=== PATIENT | female | born 1990 | race African-American/Black ===

== ENCOUNTER 2016-11-01 15:32 | Emergency (ER) | payer MEDICAID ==
[~2016-11-01] VITALS: Ht 170.2 cm; Wt 88.5 kg
[~2016-11-01 15:32] MED LIST: ACETAMINOPHEN500 M3 ORAL; ADALAT CC60 MG ORAL; ADALAT20 MG ORAL; AMOXICILLIN500 MG ORAL; AUGMENTIN 875-1 EAC1 ORAL; AZITHROMYCIN250 MG ORAL; CATAPRES0.2 MG ORAL; CATAPRES0.3 MG ORAL; CIPROFLOXACIN500 M2 ORAL; CLONIDINE 0.2M0.2 MG PO; CLONIDINE0.1 MG PO; ENALAPRIL MALEA10 MG ORAL; GUAIFENESIN-CO118 M1 ORAL; HYDROCODON-ACE1 EA15 ORAL; IBUPROFEN600 MG ORAL; NIFEDIPINE ER60 M2 ORAL; NIFEDIPINE ER60 M2 PO; NIFEDIPINE XL30 M1 PO; NORCO 5-325 TA1 EACH ORAL; ROBITUSSIN DM5 ML ORAL; TRAMADOL HCL50 MG ORAL; ZOFRAN ODT4 MG ORAL
[2016-11-01 15:58] VITALS: BP 132/78
--- NOTE | 2016-11-01 16:06 | Emergency Room Report ---
History of Present Illness General Chief Complaint: Pain Source: Patient Present Illness HPI R sided swollen lymph node Allergies: Coded Allergies: No Known Allergies (Unverified , 11/22/12) Patient History Last Menstrual Period: 10/25/16 Now: No Nursing Documentation-[facility] Past Medical History: No Stated History Hx Hypertension: Yes Review of Systems All Other Systems: negative except mentioned in HPI Physical Exam Vital Signs Date Time Temp Pulse Resp B/P Pulse Ox O2 Delivery O2 Flow Rate FiO2 11/01/16 15:44 98.2 99 16 132/78 98 Room Air Medical Decision Making PA Attestation Dr. Bergeron is my supervising physician. Patient management was discussed with my supervising physician Diagnostic Impression: Primary Impression: Lymph node enlargement ER Course Differential diagnosis include but not limited to pharyngitis, sinusitis, AOM, bronchitis, PNA PE: No apparent distress. No TTP over maxillary or frontal sinuses. Lungs CTA bilat. No wheezing. No accessory muscle use. Heart: RRR, no abnormal heart sounds Ears: external auditory canal clear. Non erythematous. Bilat TM intact. Cone of light present bilat. No bulging of TM. No serous fluid seen. + nasal D/C + anterior cervical lymphad No tonsillar exudate. Uvula midline.Oropharynx non erythematous Last Vital Signs Date Time Temp Pulse Resp B/P Pulse Ox O2 Delivery O2 Flow Rate FiO2 11/01/16 15:58 98.2 16 132/78 98 Room Air 11/01/16 15:44 99 Scripts Amoxicillin* (AMOXIL*) 500 Mg Capsule 500 MG ORAL Q12HR, #20 CAP Prov: PO PATEL 11/01/16 PO PATEL November 01, 2016 16:06
[2016-11-01] MEDS ORDERED: AMOXICILLIN500 MG ORAL (16:08)
[2016-11-01 16:09] VITALS: BP 132/78
== END 2016-11-01 16:30 | disposition home or self-care (01) ==
LOC: EMR 16:20
DX: R59.9 Enlarged lymph nodes, unspecified (principal); I10 Essential (primary) hypertension
CPT/HCPCS: 99283

== ENCOUNTER 2017-10-05 13:35 | Emergency (ER) | payer MEDICAID ==
[~2017-10-05] VITALS: Ht 172.7 cm; Wt 86.2 kg
[2017-10-05] MEDS ORDERED: NKM (13:45)
--- NOTE | 2017-10-05 14:06 | Emergency Room Report ---
History of Present Illness General Chief Complaint: Toothache Source: Patient Present Illness HPI Patient is a 27-year-old female presented after increased left upper the molar dental pain. The patient reports having increased pain over the past 2 days. She had recently been seen by a dentist but did not have any repair done. Stated that a filling had become dislodged. She subsequently noticed having increased pain with an sensitivity to hot and cold. The pain was described as a throbbing sensation. She denies any fever. She reports having minimal relief with topical anesthetics. Allergies: Coded Allergies: No Known Allergies (Unverified , 11/22/12) Patient History Past Medical History: see triage record Last Menstrual Period: 09/24/17 : 2 Para: 2 Reviewed Nursing Documentation: PMH: Agreed; PSxH: Agreed Nursing Documentation-PMH Past Medical History: No Stated History Hx Hypertension: Yes Review of Systems All Other Systems: negative except mentioned in HPI Physical Exam Vital Signs Date Time Temp Pulse Resp B/P (MAP) Pulse Ox O2 Delivery O2 Flow Rate FiO2 10/05/17 13:41 98.4 66 18 150/91 97 Room Air 98.4 General Appearance: well appearing, no apparent distress, alert, GCS 15 Head: normocephalic, atraumatic ENT: hearing grossly normal, normal voice, other - dental caries, no tenderness to tooth, no maxillary swelling Neck: full range of motion, supple Respiratory: no respiratory distress, speaking full sentences Musculoskeletal: no calf tenderness Neurologic: normal gait Psychiatric: mood/affect normal Skin: no rash Medical Decision Making Diagnostic Impression: Primary Impression: Pain due to dental caries ER Course Differential diagnosis included but was not limited to trigeminal neuralgia, dental abscess, dry socket, osteomyelitis, nerve injury. The patient was noted to have a benign exam. There is no evidence of infection. The patient is advised to follow up with dentist in 1-2 days. Patient stated she had a negative test at [place] last night. Patient is advised to return if any worsening condition or if any changes in status that are concerning. Last Vital Signs Date Time Temp Pulse Resp B/P (MAP) Pulse Ox O2 Delivery O2 Flow Rate FiO2 10/05/17 13:41 98.4 66 18 150/91 97 Room Air 98.4 Status: improved Disposition: HOME, SELF-CARE Condition: Stable Dada Luevano Oct 05, 2017 14:06
[2017-10-05] MEDS ORDERED: LIDOCAINE VISC100 ML ORAL (14:08)
[2017-10-05] MEDS ORDERED: IBUPROFEN600 MG ORAL (14:08)
[2017-10-05] MEDS ORDERED: Lidocaine 2% Visc 15ml soln ORAL ONE (14:15)
[2017-10-05] MEDS ORDERED: Ketorolac 60mg Inj IM ONE (14:15)
[2017-10-05 14:18] VITALS: BP 147/88
[2017-10-05 14:19] VITALS: BP 147/88
== END 2017-10-05 14:19 | disposition home or self-care (01) ==
LOC: EMR 14:00
DX: K02.9 Dental caries, unspecified (principal); I10 Essential (primary) hypertension
CPT/HCPCS: 96372; 99283

== ENCOUNTER 2017-10-10 15:59 | Emergency (ER) | payer MEDICAID ==
[~2017-10-10] VITALS: Ht 170.2 cm; Wt 90.7 kg
[~2017-10-10 15:59] MED LIST changes: +LIDOCAINE VISC100 ML ORAL; +NKM
[2017-10-10 16:17] VITALS: BP 120/72
[2017-10-10] MEDS ORDERED: Ketorolac 30mg Inj IM ONE (16:30)
[2017-10-10] MEDS ORDERED: Lidocaine HCl 2% Jelly 5ml Tube TOPIC ONE (16:30)
--- NOTE | 2017-10-10 16:37 | Emergency Room Report ---
History of Present Illness General Chief Complaint: Toothache Source: Patient Present Illness HPI 27 yo female patient presents to ER complaining of dental pain. Reports seen by dentist earlier today and told she needs a tooth extraction. Reports was given Amoxicillin, Ibuprofen and [place] and pain persists. Patient previously seen in ER 5 days ago for similar symptoms. Patient requesting pain relief. Reports using Ambesol to numb tooth and has intermittent relief. Reports no fever, chest pain, SOB. Allergies: Coded Allergies: No Known Allergies (Unverified , 11/22/12) Patient History Past Medical History: see triage record Reviewed Nursing Documentation: PMH: Agreed; PSxH: Agreed Nursing Documentation-PMH Past Medical History: No Stated History Hx Hypertension: Yes Review of Systems All Other Systems: negative except mentioned in HPI Physical Exam Vital Signs Date Time Temp Pulse Resp B/P (MAP) Pulse Ox O2 Delivery O2 Flow Rate FiO2 10/10/17 16:06 98.3 83 20 120/72 100 Room Air 98.2 Sp02 EP Interpretation: reviewed, normal General Appearance: well appearing, no apparent distress, alert, GCS 15, non- toxic Head: normocephalic, atraumatic Eyes: bilateral eye normal inspection, bilateral eye PERRL ENT: hearing grossly normal, normal pharynx, no angioedema, normal voice, TMs + canals normal, uvula midline, moist mucus membranes, other - dental caries, no TTP of teeth, no open wounds, no active bleeding Neck: full range of motion Respiratory: lungs clear, normal breath sounds, no rhonchi, no respiratory distress, no accessory muscle use, no wheezing, speaking full sentences Cardiovascular #1: regular rate, rhythm, no edema Musculoskeletal: back normal, digits/nails normal, gait/station normal, normal range of motion, non-tender Neurologic: alert, oriented x3, responsive, motor strength/tone normal, sensory intact Psychiatric: mood/affect normal Skin: no rash Medical Decision Making PA Attestation Dr. Flannery is my supervising Physician whom patient management has been discussed with. Diagnostic Impression: Primary Impression: Toothache ER Course Pt. presents to the ED c/o tooth pain. Ddx considered but are not limited to cellulitis, abscess, dental caries, gingivitis. Does not require imaging at this time. Vital signs: are WNL, pt. is afebrile ED INTERVENTIONS: PE benign. Lidocaine jelly applied to tooth. Toradol provided for pain in ER. Nontoxic appearing, speaking full sentences, no active draining, mild edema, no trismus or vision changes. Followup with dentist and primary care provider. Take medications provided by and as instructed by dentist. Consult with Dr. Flannery, will not perform dental injection for pain in ER at this time. Patient reports will go to [facility] for dental injection for pain. Instructed patient to followup with dentist and primary care provider for pain relief. DISCHARGE: At this time pt. is stable for d/c to home. Patient is resting comfortably, in no acute distress, nontoxic appearing, talking and smiling without difficulty. Will provide printed patient care instructions and any necessary prescriptions. Care plan and follow up instructions have been discussed with the patient prior to discharge. Patient instructed to follow-up with primary care provider in 2 - 3 days. Followup with dentist. Patient questions asked and answered. Patient reports understanding and agreement to treatment plan. ER precautions given. Patient instructed to return to ER immediately for any new or worsening of symptoms including but not limited to fever, worsening of pain symptoms, worsening of erythema, red streaking. Last Vital Signs Date Time Temp Pulse Resp B/P (MAP) Pulse Ox O2 Delivery O2 Flow Rate FiO2 10/10/17 16:17 98.2 83 20 120/72 100 Room Air 98.2 Disposition: HOME, SELF-CARE Condition: Stable Patient Instructions: Dental Pain Additional Instructions: Followup with primary care provider in 3 -5 days. Followup with dentist for followup, treatment and management. Take medications as directed. Patient questions asked and answered. ER precautions given, patient instructed to return to ER immediately for any new or worsening of symptoms. Caleb Ng Oct 10, 2017 16:37
[2017-10-10 17:20] VITALS: BP 120/72
== END 2017-10-10 17:20 | disposition home or self-care (01) ==
LOC: EMR 17:00
DX: K08.89 Other specified disorders of teeth and supporting structures (principal); I10 Essential (primary) hypertension
CPT/HCPCS: 96372; 99283; J1885

== ENCOUNTER 2017-12-23 00:56 | Emergency (ER) | payer MEDICAID ==
[~2017-12-23] VITALS: Ht 170.2 cm; Wt 93.0 kg
[2017-12-23] MEDS ORDERED: TRAMADOL HCL50 MG ORAL (01:23)
[2017-12-23] MEDS ORDERED: Norco 5mg/325mg tab PO ONE (01:45)
[2017-12-23] MEDS ORDERED: IBUPROFEN600 MG ORAL (03:13)
[2017-12-23 03:19] VITALS: BP 117/78
--- NOTE | 2017-12-23 05:13 | Emergency Room Report ---
History of Present Illness General Chief Complaint: Lower Extremity Injury Source: Patient Present Illness HPI 27-year-old female presents ED complaining of right ankle pain and swelling. States that this morning she rolled her ankle at home. Notes pain to the right ankle and foot. 8 out of 10, throbbing, nonradiating. States it is difficult to bear weight. Denies any other injuries. No other aggravating relieving factors. Denies any other associated symptoms Allergies: Coded Allergies: No Known Allergies (Unverified , 12/23/17) Patient History Past Medical History: none Past Surgical History: none Pertinent Family History: none Social History: Denies: smoking, alcohol use, drug use Last Menstrual Period: 12/20/2017 Now: No Immunizations: UTD Reviewed Nursing Documentation: PMH: Agreed; PSxH: Agreed Nursing Documentation-PMH Past Medical History: No Stated History Hx Hypertension: No Review of Systems All Other Systems: negative except mentioned in HPI Physical Exam Vital Signs Date Time Temp Pulse Resp B/P (MAP) Pulse Ox O2 Delivery O2 Flow Rate FiO2 12/23/17 01:17 98.2 74 16 117/78 96 Room Air 98.2 Sp02 EP Interpretation: reviewed, normal General Appearance: no apparent distress, alert, GCS 15, non-toxic Head: normocephalic, atraumatic Eyes: bilateral eye normal inspection, bilateral eye PERRL ENT: hearing grossly normal, normal pharynx, no angioedema, normal voice Neck: full range of motion, supple/symm/no masses Respiratory: chest non-tender, lungs clear, normal breath sounds, speaking full sentences Cardiovascular #1: regular rate, rhythm, no edema Cardiovascular #2: 2+ carotid (R), 2+ carotid (L), 2+ radial (R), 2+ radial (L) , 2+ dorsalis pedis (R), 2+ dorsalis pedis (L) Gastrointestinal: normal bowel sounds, non tender, soft, non-distended, no guarding, no rebound Rectal: deferred Genitourinary: normal inspection, no CVA tenderness Musculoskeletal: back normal, gait/station normal, normal range of motion, tender - R foot Neurologic: alert, oriented x3, responsive, motor strength/tone normal, sensory intact, speech normal Psychiatric: judgement/insight normal, memory normal, mood/affect normal, no suicidal/homicidal ideation Reflexes: 3+ bicep (R), 3+ bicep (L), 3+ tricep (R), 3+ tricep (L), 3+ knee (R) , 3+ knee (L) Skin: normal color, no rash, warm/dry, well hydrated Lymphatic: no adenopathy Procedures Splinting Splinting : Consent: Verbal Pre-Made Type: LENNY wrap Pre-Proc Neuro Vasc Exam: normal Post-Proc Neuro Vasc Exam: normal Patient Tolerated: Well Complications: None Medical Decision Making Diagnostic Impression: Primary Impression: Ankle sprain Qualified Codes: S93.401A - Sprain of unspecified ligament of right ankle, initial encounter ER Course Hospital Course 27-year-old F presents to ED complaining of R foot pain s/p trip and fall Differential diagnoses include: Fracture, dislocation, sprain, contusion Clinical course Patient placed on stretcher. After initial history and physical, I ordered pain medications and Xrays of R foot/ankle Xrays prelim read shows no acute fracture/dislocation. placed in lenny wrap, given crutches Diagnosis - ankle sprain Stable and discharged to home with prescription for Motrin. apply ice, keep elevated. weight bear as tolerated. Followup with PMD. Return to ED if symptoms recur or worsen Other X-Ray Diagnostic Results Other X-Ray Diagnostic Results #1: X-Ray ordered: R foot # of Views/Limited Vs Complete: 3 View Indication: Pain EP Interpretation: Yes Interpretation: no dislocation, no soft tissue swelling, no fractures Impression: No acute disease Electronically Signed by: Electronically signed by Sean Flannery MD Other X-Ray Diagnostic Results #2: X-Ray ordered: R ankle # of Views/Limited Vs Complete: 3 View Indication: Pain EP Interpretation: Yes Interpretation: no dislocation, no soft tissue swelling, no fractures Impression: No acute disease Electronically Signed by: Electronically signed by Sean Flannery MD Last Vital Signs Date Time Temp Pulse Resp B/P (MAP) Pulse Ox O2 Delivery O2 Flow Rate FiO2 12/23/17 03:19 98.2 88 16 117/78 96 Room Air 208.8 Status: improved Disposition: HOME, SELF-CARE Condition: Stable Scripts Ibuprofen* (MOTRIN*) 600 Mg Tablet 600 MG ORAL Q8H PRN for For Pain, #30 TAB 0 Refills Prov: Sean Flannery MD 12/23/17 Patient Instructions: Ankle Sprain Sean Flannery MD Dec 23, 2017 05:13
--- NOTE | 2017-12-23 10:56 | Diagnostic Imaging Report ---
Indication: Foot Pain Comparison: None Findings: 3 views of the right foot were obtained. No acute fractures, malalignment, erosions or periostitis are identified. Soft tissues are unremarkable. Impression: No acute findings.
--- NOTE | 2017-12-23 10:56 | Diagnostic Imaging Report ---
Indication: Pain right ankle ankle pain/trauma Comparison: None Findings: 3 views of the right ankle obtained. No acute fracture, malalignment, periostitis, or osteochondral defects are identified. Soft tissues are unremarkable. Impression: Negative examination
== END 2017-12-23 03:21 | disposition home or self-care (01) ==
LOC: EMR 01:35
DX: S93.401A Sprain of unspecified ligament of right ankle, initial encounter (principal); X50.1XXA Overexertion from prolonged static or awkward postures, initial encounter; Y92.009 Unspecified place in unspecified non-institutional (private) residence as the place of occurrence of the external cause
CPT/HCPCS: 99284

== ENCOUNTER 2018-06-09 12:32 | Emergency (ER) | payer MEDICAID ==
[~2018-06-09] VITALS: Ht 170.2 cm; Wt 140.6 kg
[2018-06-09 12:43] VITALS: BP 151/86
[2018-06-09] MEDS ORDERED: Lidocaine 2% Visc 15ml soln ORAL ONE (13:00)
[2018-06-09] MEDS ORDERED: Ketorolac 30mg Inj IM ONE (13:00)
[2018-06-09] MEDS ORDERED: Tylenol #3 tab (300mg/30mg) ORAL ONE (13:00)
--- NOTE | 2018-06-09 13:06 | Emergency Room Report ---
History of Present Illness General Chief Complaint: Toothache Source: Patient Present Illness HPI 28-year-old female presents to the emergency department complaining of 10 out of 10 in severity localized dental pain to the top left molars 2 days. Patient reports history of significant dental caries which were recommended for extraction however she was an able to have them extracted by her dentist due to financial reasons. Patient denies fevers, chills, trauma or fall to cause tooth injury. Patient denies swelling, tenderness or redness about the gum line in that area. Patient states that she has been taking ibuprofen and using several different mouthwashes which have not provided any relief. Allergies: Coded Allergies: No Known Allergies (Unverified , 12/23/17) Patient History Past Medical History: see triage record Past Surgical History: none Pertinent Family History: none Last Menstrual Period: 05/30/18 Now: No Reviewed Nursing Documentation: PMH: Agreed; PSxH: Agreed Nursing Documentation-PMH Past Medical History: No Stated History Hx Hypertension: No Review of Systems All Other Systems: negative except mentioned in HPI Physical Exam Vital Signs Date Time Temp Pulse Resp B/P (MAP) Pulse Ox O2 Delivery O2 Flow Rate FiO2 06/09/18 12:38 98.2 74 18 151/86 98 Room Air Sp02 EP Interpretation: reviewed, normal General Appearance: no apparent distress, alert, GCS 15, non-toxic Head: normocephalic, atraumatic Eyes: bilateral eye normal inspection, bilateral eye PERRL ENT: hearing grossly normal, normal voice, other - Severe obvious/visible dental caries on medial portion of teeth numbers 13 and 14. Severe tenderness to percussion with tongue blade, no erythema, or swelling to the gumline. Neck: full range of motion Respiratory: lungs clear, normal breath sounds, speaking full sentences Cardiovascular #1: regular rate, rhythm Musculoskeletal: back normal, gait/station normal, normal range of motion Neurologic: alert, oriented x3, responsive, motor strength/tone normal, sensory intact, normal gait, speech normal, grossly normal Psychiatric: judgement/insight normal Skin: normal color, no rash, warm/dry, well hydrated Medical Decision Making PA Attestation Dr. Luevano is my supervising Physician whom patient management has been discussed with. Diagnostic Impression: Primary Impression: Acute pulpitis Additional Impression: Pain due to dental caries ER Course Pt. presents to the ED c/o pain, swelling, and erythema to the right jaw, and tooth pain with a broken tooth. x 2 days Ddx considered but are not limited to cellulitis, dental abscess, orbital cellulitis, d/l tooth, dental pain. trigeminal neuralgia Vital signs: are WNL, pt. is afebrile H&PE are most consistent with severe visible dental carries - I reviewed this pt. CURES report and there are no active prescriptions for controlled substances in [place] at this time.- Last rx for a controlled pharmaceutical was back in September. . ORDERS: none required at this time, the diagnosis is clinical ED INTERVENTIONS: -Toradol IM -Tylenol 3 PO - viscous lidocaine topically applied DISCHARGE: At this time pt. is stable for d/c to home. Will provide printed patient care instructions, and any necessary prescriptions. Care plan and follow up instructions have been discussed with the patient prior to discharge. Last Vital Signs Date Time Temp Pulse Resp B/P (MAP) Pulse Ox O2 Delivery O2 Flow Rate FiO2 06/09/18 12:38 98.2 74 18 151/86 98 Room Air Disposition: HOME, SELF-CARE Condition: Stable Scripts Amoxicillin* (AMOXIL*) 500 Mg Capsule 500 MG ORAL EVERY 8 HOURS for 7 Days, #21 CAP Prov: Radha Ramírez 06/09/18 Lidocaine HCl 2% Viscous (Lidocaine HCl 2% Viscous) 100 Ml Solution 5 ML ORAL QID, #100 ML Prov: Radha Ramírez 06/09/18 Acetaminophen* (TYLENOL EXTRA STRENGTH*) 500 Mg Tablet 500 MG ORAL Q6H, #20 TAB 0 Refills Prov: Radha Ramírez 06/09/18 Naproxen* (NAPROXEN*) 500 Mg Tablet.dr 500 MG ORAL TWICE A DAY for 7 Days, #14 TAB Prov: Radha Ramírez 06/09/18 Patient Instructions: Dental Pain Additional Instructions: Take medications as directed. Follow up with a Dentist in 3-5 days, even if your symptoms have resolved. * * --Please review list of Dental clinics, if you do not already have a Dentist Return sooner to ED if new symptoms occur, or current symptoms become worse. Do not drink alcohol, drive, or operate heavy machinery while taking Tylenol # 3 as this may cause drowsiness. - Please note that this Emergency Department Report was dictated using [employer] case manager technology software, occasionally this can lead to erroneous entry secondary to interpretation by the dictation equipment. Radha Ramírez Jun 09, 2018 13:05
[2018-06-09] MEDS ORDERED: NAPROXEN500 M1 ORAL (13:44)
[2018-06-09] MEDS ORDERED: AMOXICILLIN500 MG ORAL (13:44)
[2018-06-09] MEDS ORDERED: LIDOCAINE VISC100 ML ORAL (13:44)
[2018-06-09] MEDS ORDERED: TYLENOL EXTRA500 MG ORAL (13:44)
[2018-06-09 13:55] VITALS: BP 138/78
[2018-06-09] MEDS ORDERED: ACETAMINOPHEN-1 EAC1 ORAL (19:31)
== END 2018-06-09 13:55 | disposition home or self-care (01) ==
LOC: EMR 13:46
DX: K04.01 Reversible pulpitis (principal); K02.9 Dental caries, unspecified
CPT/HCPCS: 96372; 99283; J1885

== ENCOUNTER 2018-06-09 18:51 | Emergency (ER) | payer MEDICAID ==
[~2018-06-09] VITALS: Ht 170.2 cm; Wt 95.3 kg
[~2018-06-09 18:51] MED LIST changes: +NAPROXEN500 M1 ORAL; +TYLENOL EXTRA500 MG ORAL
[2018-06-09 19:00] VITALS: BP 161/86
--- NOTE | 2018-06-09 19:29 | Emergency Room Report ---
History of Present Illness General Chief Complaint: Toothache Source: Patient, Medical Record Present Illness HPI 28-year-old female presents to the emergency department for complaint of inability to fill her prescription that she received in the ER earlier today. Patient states that she has 10 out of 10 in severity tooth pain and that the medication that she was given here in the emergency department were off after about 4 hours. Patient denies changes in character of her symptoms. reports she took a Motrin again [employer]. She states that after she was discharged here in the emergency department and her had to go to work and therefore was unable to offer prescriptions. She denies fevers, chills, trauma to the affected teeth. She states that she had already started to call some of the dentist that were on the list that she was previously given. Allergies: Coded Allergies: No Known Allergies (Unverified , 12/23/17) Patient History Past Medical History: see triage record Past Surgical History: none Pertinent Family History: none Last Menstrual Period: 05/30/18 Now: No Reviewed Nursing Documentation: PMH: Agreed; PSxH: Agreed Nursing Documentation-PMH Past Medical History: No Stated History Hx Hypertension: No Review of Systems All Other Systems: negative except mentioned in HPI Physical Exam Vital Signs Date Time Temp Pulse Resp B/P (MAP) Pulse Ox O2 Delivery O2 Flow Rate FiO2 06/09/18 18:52 98.6 77 18 161/86 97 Room Air Sp02 EP Interpretation: reviewed, normal General Appearance: alert, GCS 15, non-toxic, moderate distress Head: normocephalic, atraumatic Eyes: bilateral eye normal inspection, bilateral eye PERRL ENT: hearing grossly normal, normal voice, other - visible dental carries on teeth numbers 13 and 14. no surrounding gum line erythema. Neck: full range of motion Respiratory: lungs clear, normal breath sounds, speaking full sentences Cardiovascular #1: regular rate, rhythm Musculoskeletal: back normal, gait/station normal, normal range of motion, non- tender Neurologic: alert, oriented x3, responsive, motor strength/tone normal, sensory intact, speech normal, grossly normal Psychiatric: judgement/insight normal Skin: normal color, no rash, warm/dry, well hydrated Medical Decision Making PA Attestation Dr. Meza is my supervising Physician whom patient management has been discussed with. Diagnostic Impression: Primary Impression: Pain due to dental caries ER Course Pt. presents to the ED c/o pain, swelling, and erythema to the right jaw, and tooth pain with a broken tooth. x 2 days Ddx considered but are not limited to cellulitis, dental abscess, orbital cellulitis, d/l tooth, dental pain. trigeminal neuralgia Vital signs: are WNL, pt. is afebrile H&PE are most consistent with dental abscess. ORDERS: none required at this time, the diagnosis is clinical ED INTERVENTIONS: -Viscous Lidocaine TP - [place] PO --- I reviewed this pt. CURES report and there are no active prescriptions for controlled substances in [place] at this time. DISCHARGE: At this time pt. is stable for d/c to home. Will provide printed patient care instructions, and any necessary prescriptions. Care plan and follow up instructions have been discussed with the patient prior to discharge. Last Vital Signs Date Time Temp Pulse Resp B/P (MAP) Pulse Ox O2 Delivery O2 Flow Rate FiO2 06/09/18 19:00 98.6 85 18 161/86 97 Room Air Disposition: HOME, SELF-CARE Condition: Stable Scripts Acetaminophen With Codeine (T#3) (TYLENOL #3 TAB*) Y Tab 1 TAB ORAL Q8HR PRN for For Pain, #5 TAB Prov: Radha Ramírez 06/09/18 Patient Instructions: Dental Pain Additional Instructions: Take medications as directed. Follow up with a Dentist in 3-5 days, even if your symptoms have resolved. * * --Please review list of Dental clinics, if you do not already have a Dentist Return sooner to ED if new symptoms occur, or current symptoms become worse . Do not drink alcohol, drive, or operate heavy machinery while taking Tylenol # 3 as this may cause drowsiness. - Please note that this Emergency Department Report was dictated using [email or web address] technology software, occasionally this can lead to erroneous entry secondary to interpretation by the dictation equipment. Radha Ramírez Jun 09, 2018 19:29
[2018-06-09] MEDS ORDERED: Lidocaine 2% Visc 15ml soln ORAL ONE (19:30)
[2018-06-09] MEDS ORDERED: HYDROcodone/Acetamin 7.5/325 tab ORAL ONE (19:30)
[2018-06-09] MEDS ORDERED: ACETAMINOPHEN-1 EAC1 ORAL (19:31)
[2018-06-09 20:00] VITALS: BP 141/80
[2018-06-09 20:14] VITALS: BP 141/80
== END 2018-06-09 20:20 | disposition home or self-care (01) ==
LOC: EMR 20:15
DX: K08.89 Other specified disorders of teeth and supporting structures (principal); K02.9 Dental caries, unspecified
CPT/HCPCS: 99282

== ENCOUNTER 2019-01-28 01:58 | Emergency (ER) | payer MEDICAID ==
[~2019-01-28] VITALS: Ht 170.2 cm; Wt 108.9 kg
[~2019-01-28 01:58] MED LIST changes: +ACETAMINOPHEN-1 EAC1 ORAL; +FIORICET1 EA ORAL; +ONDANSETRON ODT4 MG BC
[2019-01-28] MEDS ORDERED: AMOXICILLIN500 MG ORAL (02:06)
--- NOTE | 2019-01-28 02:10 | NUR ---
ED Nurse Note: PT WALKED IN C/O SORETHROAT, WEAKNESS, DIZZINESS, L EARACHE, SINCE MORNING. PT VSS, AMBULATORY W/ STEADY GAIT, AFEBRILE, NO COUGH AT THIS TIME WILL CONT MONITOR. RESP EVEN AND UNLABORED ON RA.
[2019-01-28] MEDS ORDERED: Lidocaine 2% Visc 15ml soln ORAL ONE (02:15)
[2019-01-28] MEDS ORDERED: Lidocaine 2% Visc 15ml soln ONE (02:23)
[2019-01-28 03:12] VITALS: BP 116/73
--- NOTE | 2019-01-28 04:16 | NUR ---
[employer] DOWNTIME: For 01/28/2019 From 0200 to 0600 the following electronic documentation will be located in the patient handwritten chart, Following patient discharge, paper documentation will be scanned into [facility] with the remainder of the paper chart. Nursing Documentation Physician orders Medication Administration Records Medication Reconciliation Respiratory Documentation Dietary Documentation Case Management Documentation Golf Cart Mechanic Documentation
[2019-01-28 04:39] LABS: APPEARANCE,URINE SLIGHTLY CLOUDY; BILIRUBIN, URINE NEGATIVE (NEGATIVE); COLOR,URINE PALE YELLOW; GLUCOSE, URINE (UA) NEGATIVE (NEGATIVE); KETONES,URINE NEGATIVE (NEGATIVE); LEUKOCYTE ESTERASE ,URINE 1+ (NEGATIVE); NITRITE,URINE NEGATIVE (NEGATIVE); PH,URINE 7 (4.5-8.0); PROTEIN,URINE NEGATIVE (NEGATIVE); UROBILINOGEN,URINE NORMAL MG/DL (0.0-1.0)
--- NOTE | 2019-01-28 05:59 | NUR ---
ED Nurse Note: please refer to paper chart for discharge assessment.
--- NOTE | 2019-01-28 06:06 | Emergency Room Report ---
History of Present Illness General Chief Complaint: General Complaint Source: Patient Present Illness HPI 28-year-old female presented after increased sore throat as well as bilateral earache. Patient reports having acute onset of symptoms approximately 1 to 2 hours prior to arrival. She reportedly been given Benadryl prior to arrival. She reports having some pain to both ears she also reports having significant sore throat. She denies any fever. She recently finished a course of antibiotics. She denies any visual changes. She denies any ocular discharge. She denies any abdominal pain or vomiting. Allergies: Coded Allergies: No Known Allergies (Unverified , 12/23/17) Patient History Past Medical History: see triage record Reviewed Nursing Documentation: PMH: Agreed; PSxH: Agreed Nursing Documentation-PMH Past Medical History: No Stated History Hx Hypertension: No Review of Systems All Other Systems: negative except mentioned in HPI Physical Exam Vital Signs Date Time Temp Pulse Resp B/P (MAP) Pulse Ox O2 Delivery O2 Flow Rate FiO2 01/28/19 02:00 99.3 102 18 114/72 (86) 98 Room Air Sp02 EP Interpretation: reviewed, normal General Appearance: normal inspection, well appearing, no apparent distress, alert, GCS 15 Head: atraumatic ENT: hearing grossly normal, normal voice, tonsillar swelling, other - left tm erythema and bulging Neck: normal inspection, supple, no bony tend Respiratory: normal inspection, lungs clear, normal breath sounds, no respiratory distress, no retraction, no wheezing Cardiovascular #1: regular rate, rhythm, no edema Gastrointestinal: normal inspection, normal bowel sounds, non tender, soft, no guarding, no hernia Genitourinary: no CVA tenderness Musculoskeletal: normal inspection, back normal, normal range of motion Neurologic: normal inspection, alert, oriented x3, responsive, demand planning analyst III-XII nml as tested, speech normal Psychiatric: normal inspection, judgement/insight normal, mood/affect normal Medical Decision Making Diagnostic Impression: Primary Impression: Viral syndrome Last Vital Signs Date Time Temp Pulse Resp B/P (MAP) Pulse Ox O2 Delivery O2 Flow Rate FiO2 01/28/19 03:12 99.1 98 18 116/73 98 Room Air Disposition: HOME, SELF-CARE Condition: Stable Scripts Amoxicillin* (AMOXIL*) 500 Mg Capsule 500 MG ORAL THREE TIMES A DAY, #21 CAP Prov: Dada Luevano MD 01/28/19 Referrals: NON PHYSICIAN (PCP) Patient Instructions: PharyngDada Renee MD Jan 28, 2019 06:06
== END 2019-01-28 04:16 | disposition home or self-care (01) ==
LOC: EMR 02:30
DX: B34.9 Viral infection, unspecified (principal); I10 Essential (primary) hypertension; H92.03 Otalgia, bilateral
CPT/HCPCS: 81003; 81025; 99283; J8540

== ENCOUNTER 2020-07-13 16:10 | Emergency (ER) | payer MEDICAID ==
[~2020-07-13] VITALS: Ht 167.6 cm; Wt 98.4 kg
[2020-07-13 16:45] VITALS: BP 126/74
--- NOTE | 2020-07-13 16:45 | NUR ---
ED Nurse Note:Pt walked in from home c/o burning with urination and brown vaginal discharge x 3 days. Pt is 9 weeks , but denies vaginal bleeding/abd cramping. Respirations even and unlabored on room air. Vitals stable as documented. A+Ox4, speaking in complete sentences.
[2020-07-13 17:17] LABS: APPEARANCE,URINE CLEAR; BILIRUBIN, URINE NEGATIVE (NEGATIVE); COLOR,URINE PALE YELLOW; GLUCOSE, URINE (UA) NEGATIVE (NEGATIVE); KETONES,URINE NEGATIVE (NEGATIVE); LEUKOCYTE ESTERASE ,URINE NEGATIVE (NEGATIVE); NITRITE,URINE NEGATIVE (NEGATIVE); PH,URINE 6 (4.5-8.0); PROTEIN,URINE NEGATIVE (NEGATIVE); UROBILINOGEN,URINE NORMAL MG/DL (0.0-1.0)
--- NOTE | 2020-07-13 17:49 | Diagnostic Imaging Report ---
EXAM: US First Trimester , Transabdominal and Transvaginal CLINICAL HISTORY: PAIN TECHNIQUE: Real-time transabdominal and transvaginal obstetrical ultrasound of the maternal pelvis and a first trimester with image documentation. Transvaginal imaging was used for better evaluation of the fetus and adnexa. COMPARISON: No relevant prior studies available. FINDINGS: Gestation: Single intrauterine gestational sac with a yolk sac and pole. Estimated gestational age 6 weeks and 6 days. Placenta/amniotic fluid: There is a large crescentic hypoechoic structure partially encircling the gestational sac favored to represent a large subchorionic hemorrhage, less likely a second gestational sac. Uterus/cervix: Unremarkable. Ovaries: Unremarkable. Free fluid: No free fluid. IMPRESSION: 1. Single intrauterine gestational sac with a yolk sac and pole. Estimated gestational age 6 weeks and 6 days. 2. There is a large crescentic hypoechoic structure partially encircling the gestational sac favored to represent a large subchorionic hemorrhage, less likely a second gestational sac as there is no yolk sac or pole within this structure. Recommend continuing to trend beta hCG with follow-up pelvic ultrasounds as clinically indicated.
--- NOTE | 2020-07-13 17:57 | Emergency Room Report ---
History of Present Illness General Chief Complaint: Female Urogenital Problems Source: Patient Present Illness HPI 30-year-old female who is G3, P2 and reports being about a month and a half via IVF here complaining of dysuria and urinary frequency x2 days. Has not yet established a visit with MOVIE MACHINE OPERATOR. Denies any vaginal bleeding or spotting. Denies any nausea vomiting reports that he is taking vitamins. Denies any chest pain shortness of breath. Appears to be stable with stable vital signs. Allergies: Coded Allergies: No Known Allergies (Unverified , 12/23/17) COVID-19 Screening Contact w/high risk pt: No Experienced COVID-19 symptoms?: No COVID-19 Testing performed TORCH OPERATOR: No COVID-19 Screening: Negative COVID-19 COVID-19 Testing Source: 9 weeks ago Patient History Past Medical History: see triage record Past Surgical History: none Pertinent Family History: none Now: Yes - 9 weeks Immunizations: UTD Reviewed Nursing Documentation: PMH: Agreed; PSxH: Agreed Nursing Documentation-PMH Past Medical History: No Stated History Hx Hypertension: No Review of Systems All Other Systems: negative except mentioned in HPI Physical Exam Vital Signs Date Time Temp Pulse Resp B/P (MAP) Pulse Ox O2 Delivery O2 Flow Rate FiO2 07/13/20 16:40 98.2 78 20 122/83 (96) 96 Room Air Sp02 EP Interpretation: reviewed, normal General Appearance: no apparent distress, alert, GCS 15, non-toxic Head: normocephalic, atraumatic Eyes: bilateral eye normal inspection, bilateral eye PERRL ENT: hearing grossly normal, normal pharynx, no angioedema, normal voice Neck: full range of motion, supple/symm/no masses Respiratory: no respiratory distress, no retraction, no accessory muscle use Cardiovascular #2: 2+ carotid (R), 2+ carotid (L), 2+ radial (R), 2+ radial (L), 2+ dorsalis pedis (R), 2+ dorsalis pedis (L) Gastrointestinal: non tender, soft, no peritonitis, no bruit Rectal: deferred Genitourinary: no CVA tenderness Musculoskeletal: back normal, normal range of motion, calf tenderness, gait/station normal, non-tender Neurologic: alert, motor strength/tone normal, oriented Psychiatric: judgement/insight normal, memory normal, mood/affect normal, no suicidal/homicidal ideation Skin: no rash Lymphatic: no adenopathy Medical Decision Making PA Attestation All my diagnosis and treatment plans were reviewed ad discussed with my supervising physician Dr. Dooley Diagnostic Impression: Primary Impression: UTI (urinary tract infection) during Additional Impression: Subchorionic hemorrhage in first trimester ER Course 30-year-old female who is G3, P2 and reports being about a month and a half via IVF here complaining of dysuria and urinary frequency x2 days. Has not yet established a visit with MOVIE MACHINE OPERATOR. Denies any vaginal bleeding or spotting. Denies any nausea vomiting reports that he is taking vitamins. Denies any chest pain shortness of breath. Appears to be stable with stable vital signs. Ddx considered but are not limited to: Ectopic , threatened , spontaneous , abdominal pain urine , UTI urine . pylonephritis, urinary incontinence, prolapsed bladder Vital signs: are WNL, pt. is afebrile H&PE are most consistent with: UTI during , subchorionic hemorrhage ORDERS: UA, urine cx, hCG quantitative, CBC, CMP, type and screen, OB ultrasound, Keflex, Pyridium ED INTERVENTIONS: Tylenol DISCHARGE: At this time pt. is stable for d/c to home. Will provide printed patient care instructions, and any necessary prescriptions. Care plan and follow up instructions have been discussed with the patient prior to discharge. Take medication as directed, follow-up with MOVIE MACHINE OPERATOR in 24 to 48 hours, if worsening symptoms return to the emergency room need to be monitored by your MOVIE MACHINE OPERATOR for the subchorionic hemorrhage also pelvic ultrasound need to be repeated in [address]/MRI/US Diagnostic Results CT/MRI/US Diagnostic Results #1: Imaging Test Ordered: OB ultrasound Impression COMPARISON: No relevant prior studies available. FINDINGS: Gestation: Single intrauterine gestational sacwith a yolk sac and pole. Estimated gestational age 6weeks and 6 days. Placenta/amniotic fluid: There is a large crescentic hypoechoic structure partiallyencircling the gestational sac favored to represent a large subchorionic hemorrhage, less likelya second gestational sac. Uterus/cervix:Unremarkable. Ovaries:Unremarkable. Free fluid:No free fluid. IMPRESSION: 1. Single intrauterine gestational sacwith a yolk sac and pole. Estimated gestational age 6weeks and 6 days. 2. There is a large crescentic hypoechoic structure partiallyencircling the gestational sac favored to represent a large subchorionic hemorrhage, less likelya second gestational sac as there is no yolk sac or pole within this structure. Recommend continuing to trend beta hCG with follow-up pelvic ultrasounds as clinicallyindicated CT/MRI/US Diagnostic Results #2: Imaging Test Ordered: Renal ultrasound Impression EXAM: US Retroperitoneal Limited, Renal CLINICAL HISTORY: PAIN TECHNIQUE: Real-time limited ultrasound of the retroperitoneumwith image documentation. COMPARISON: No relevant prior studies available. FINDINGS: Right kidney: The right kidneymeasures 13.2 x 5.3 x 6.0 cm. No hydronephrosis, nephrolithiasis, or suspicious lesion. Left kidney: The left kidneymeasures 11.4 x 6.4 x 4.7 cm. No hydronephrosis, nephrolithiasis, or suspicious lesion. Bladder:Unremarkable appearance of the bladder. Post void residual of 53 cc. IMPRESSION: Normal renal ultrasound Last Vital Signs Date Time Temp Pulse Resp B/P (MAP) Pulse Ox O2 Delivery O2 Flow Rate FiO2 07/13/20 16:40 98.2 78 20 122/83 (96) 96 Room Air Disposition: HOME, SELF-CARE Condition: Stable Referrals: [facility],REFERRING (PCP) Patient Instructions: Abdominal Pain During , [id number], and Urinary Tract Infection Additional Instructions: Take medication as directed, follow-up with MOVIE MACHINE OPERATOR in 24 to 48 hours, if worsen ing symptoms return to the emergency room need to be monitored by your MOVIE MACHINE OPERATOR for the subchorionic hemorrhage also pelvic ultrasound need to be repeated in 24 to 48 hours. Johnathan Vasques Jul 13, 2020 17:57
[2020-07-13 18:16] LABS: ANION GAP 8 mmol/L (5-15); BLOOD UREA NITROGEN 9 mg/dL (7-18); CALCIUM 9.7 MG/DL (8.5-10.1); CARBON DIOXIDE 27 MMOL/L (21-32); CHLORIDE 103 MMOL/L (98-107); CREATININE 0.6 MG/DL (0.55-1.30); POTASSIUM 4.4 MMOL/L (3.5-5.1); SODIUM 137 MMOL/L (136-145)
[2020-07-13 18:17] LABS: BASOPHILS % (AUTO) 0.4 % (0.0-2.0); EOSINOPHILS % (AUTO) 0.2 % (0.0-3.0); HEMATOCRIT 40.7 % (37.0-47.0); HEMOGLOBIN 14.6 G/DL (12.0-16.0); LYMPHOCYTES % (AUTO) 18.5 % (20.0-45.0); MEAN CORPUSCULAR VOLUME 95 FL (80-99); NEUTROPHILS % (AUTO) 75.9 % (45.0-75.0); PLATELET COUNT 290 K/UL (150-450); RED BLOOD COUNT 4.28 M/UL (4.20-5.40); RED CELL DISTRIBUTION WIDTH 12.3 % (11.6-14.8); WHITE BLOOD COUNT 17.7 K/UL (4.8-10.8)
[2020-07-13 18:21] LABS: ALANINE AMINOTRANSFERASE 21 U/L (12-78); ALBUMIN 3.4 G/DL (3.4-5.0); ALBUMIN/GLOBULIN RATIO 0.9 (1.0-2.7); ALKALINE PHOSPHATASE 60 U/L (46-116); ASPARTATE AMINO TRANSFERASE 19 U/L (15-37); BILIRUBIN,TOTAL 0.1 MG/DL (0.2-1.0)
--- NOTE | 2020-07-13 18:51 | Diagnostic Imaging Report ---
EXAM: US Retroperitoneal Limited, Renal CLINICAL HISTORY: PAIN TECHNIQUE: Real-time limited ultrasound of the retroperitoneum with image documentation. COMPARISON: No relevant prior studies available. FINDINGS: Right kidney: The right kidney measures 13.2 x 5.3 x 6.0 cm. No hydronephrosis, nephrolithiasis, or suspicious lesion. Left kidney: The left kidney measures 11.4 x 6.4 x 4.7 cm. No hydronephrosis, nephrolithiasis, or suspicious lesion. Bladder: Unremarkable appearance of the bladder. Post void residual of 53 cc. IMPRESSION: Normal renal ultrasound.
[2020-07-13] MEDS ORDERED: CEPHALEXIN500 MG ORAL (18:58)
[2020-07-13] MEDS ORDERED: PHENAZOPYRIDIN200 MG ORAL (18:58)
[2020-07-13 19:05] VITALS: BP 131/72
--- NOTE | 2020-07-13 19:05 | NUR ---
ER DISCHARGE NOTE: Patient is cleared to be discharged per ERMD, pt is aox4, on room air, with stable vital signs. pt was given dc and prescription instructions, pt was able to verbalize understanding, pt id band and iv site removed without complications. pt is able to ambulate with steady gait. pt took all belongings.ED Nurse Note:
== END 2020-07-13 19:05 | disposition home or self-care (01) ==
LOC: EMR 16:45
DX: O23.41 Unspecified infection of urinary tract in pregnancy, first trimester (principal); O20.8 Other hemorrhage in early pregnancy; Z3A.01 Less than 8 weeks gestation of pregnancy
CPT/HCPCS: 36415; 76770; 76801; 76817; 80053; 80307; 81003; 84702; 85025; 86850; 86870; 86900; 86901; Z7502; 99284

== ENCOUNTER 2020-07-25 17:53 | Emergency (ER) | payer MEDICAID ==
[~2020-07-25] VITALS: Ht 170.2 cm; Wt 98.4 kg
[~2020-07-25 17:53] MED LIST changes: +CEPHALEXIN500 MG ORAL; +PHENAZOPYRIDIN200 MG ORAL
--- NOTE | 2020-07-25 18:08 | NUR ---
ED Nurse Note: Pt walked into ED for L ear pain and sore throat for 4 days. Pt went to doctor and was taking amoxicillin for a few days but states that it didnt work. Pt is alert and orientedx4, ambulatory. She has been seen by THAI.
[2020-07-25 18:10] VITALS: BP 126/65
--- NOTE | 2020-07-25 18:23 | Emergency Room Report ---
History of Present Illness General Chief Complaint: Earache Source: Patient Present Illness HPI 30 YO female who is currently presents to the ED c/o 12/30 in severity left sided throat pain and left ear pain. She reports taking ear drops and several amoxicillin after teledoc visit without relief. She denies fevers or chills. She reports she has been checking her temp. at home and has been around 99. Pt. reports she has been taking Tylenol as well. She reports last taken at 1pm. She denies cough, SOB, palpitations or SIEGEL. Pt. denies neck pain/stiffness, dizziness, abdominal pain or tenderness. Patient reports she recently had UTI and was treated for that. She denies nausea vomiting. She denies changes in her voice. She describes her pain as feeling "sore on the left side of her neck." She reports some pain increased with swallowing. She denies dental pain. She denies ear discharge or loss of hearing. Patient denies tinnitus. She denies Q-tip use. She denies trauma to the ear neck. No other aggravating or relieving factors. She reports having an appointment with her PCP tomorrow. Allergies: Coded Allergies: No Known Allergies (Unverified , 12/23/17) COVID-19 Screening Contact w/high risk pt: No Experienced COVID-19 symptoms?: No COVID-19 Testing performed GASOLINE TRACTOR OPERATOR: No Patient History Past Medical History: see triage record Past Surgical History: none Pertinent Family History: none Now: Yes - 10 weeks Reviewed Nursing Documentation: PMH: Agreed; PSxH: Agreed Nursing Documentation-PMH Past Medical History: No History, Except For Hx Hypertension: No Review of Systems All Other Systems: negative except mentioned in HPI Physical Exam Vital Signs Date Time Temp Pulse Resp B/P (MAP) Pulse Ox O2 Delivery O2 Flow Rate FiO2 07/25/20 17:56 98.2 94 17 122/69 (86) 99 Room Air Sp02 EP Interpretation: reviewed, normal General Appearance: no apparent distress, alert, GCS 15, non-toxic Head: normocephalic, atraumatic Eyes: bilateral eye normal inspection, bilateral eye PERRL ENT: hearing grossly normal, normal voice, TMs + canals normal, uvula midline, moist mucus membranes, tonsillar swelling - left sided, no exudates, pharyngeal erythema - Left sided Neck: full range of motion, no meningismus, no bony tend Respiratory: chest non-tender, lungs clear, normal breath sounds, no respiratory distress, no accessory muscle use, no wheezing, speaking full sentences Cardiovascular #1: regular rate, rhythm Gastrointestinal: non tender, soft Musculoskeletal: normal range of motion, gait/station normal, non-tender Neurologic: alert, motor strength/tone normal, oriented x3, sensory intact, responsive, speech normal Psychiatric: judgement/insight normal Skin: no rash, normal color Lymphatic: no adenopathy Medical Decision Making PA Attestation Dr. Rahman Is my supervising Physician whom patient management has been discussed with. Diagnostic Impression: Primary Impression: Acute bacterial pharyngitis Additional Impression: Ear pain, left ER Course 30 YO female who is currently presents to the ED c/o 12/30 in severity left sided throat pain and left ear pain. She reports taking ear drops and several amoxicillin after teledoc visit without relief. She denies fevers or chills. She reports she has been checking her temp. at home and has been around 99. Pt. reports she has been taking Tylenol as well. She reports last taken at 1pm. She denies cough, SOB, palpitations or SIEGEL. Pt. denies neck pain/stiffness, dizziness, abdominal pain or tenderness. Patient reports she recently had UTI and was treated for that. She denies nausea vomiting. She denies changes in her voice. She describes her pain as feeling "sore on the left side of her neck." She reports some pain increased with swallowing. She denies dental pain. She denies ear discharge or loss of hearing. Patient denies tinnitus. She denies Q-tip use. She denies trauma to the ear neck. No other aggravating or relieving factors. She reports having an appointment with her PCP tomorrow. Ddx considered but are not limited to: pharyngitis, strep, GASOLINE TRACTOR OPERATOR, [place]igs angina, URI, COVID-19, or OM/OE, just to name a few. Vital signs: are WNL, pt. is afebrile H&PE are most consistent with: pharyngitis presumed strep, no evidence of OM/OE, no evidence of GASOLINE TRACTOR OPERATOR at this time, normal voice, no sublingual wall tenderness. Left TM and canal are within normal limits, no evidence of infection at this time. No evidence of mastoiditis or meningismus. . ORDERS: None required at this time as the diagnosis is clinical ED INTERVENTIONS: none required at this time. DISCHARGE: At this time pt. is stable for d/c to home. Will provide printed patient care instructions, and any necessary prescriptions. Care plan and follow up instructions have been discussed with the patient prior to discharge. Last Vital Signs Date Time Temp Pulse Resp B/P (MAP) Pulse Ox O2 Delivery O2 Flow Rate FiO2 07/25/20 17:56 98.2 94 17 122/69 (86) 99 Room Air Status: improved Disposition: HOME, SELF-CARE Condition: Stable Scripts Acetaminophen* (TYLENOL EXTRA STRENGTH*) 500 Mg Tablet 500 MG ORAL Q6H PRN for Mild Pain/Temp > 100.5, #20 TAB 0 Refills Prov: Radha Ramírez 07/25/20 Amoxicillin/Potassium Clav 875-125* (AUGMENTIN 875-125 TABLET*) 1 Each Tablet 1 TAB ORAL TWICE A DAY for 10 Days, #20 TAB Prov: Radha Ramírez 07/25/20 Patient Instructions: Earache, Pharyngitis, [id number] Additional Instructions: Take medications as directed. Follow up with a Primary Care Provider within 3 days, even if your symptoms have resolved. --Please review list of primary care clinics, if you do not already have a primary care provider Return sooner to ED if new symptoms occur, or current symptoms become worse. - Please note that this Emergency Department Report was dictated using Floqcriminal intelligence specialist technology software, occasionally this can lead to erroneous entry secondary to interpretation by the dictation equipment. Radha Ramírez Jul 25, 2020 18:23
[2020-07-25] MEDS ORDERED: TYLENOL EXTRA500 MG ORAL (18:24)
[2020-07-25] MEDS ORDERED: AUGMENTIN 875-1 EAC1 ORAL (18:24)
[2020-07-25 18:35] VITALS: BP 121/64
--- NOTE | 2020-07-25 18:36 | NUR ---
ER DISCHARGE NOTE: Patient is cleared to be discharged per ERMD, pt is aox4, on room air, with stable vital signs. pt was given dc and prescription instructions, pt was able to verbalize understanding, pt id band removed. pt is able to ambulate with steady gait. pt took all belongings.
== END 2020-07-25 18:35 | disposition home or self-care (01) ==
LOC: EMR 18:00
DX: J02.9 Acute pharyngitis, unspecified (principal); H92.02 Otalgia, left ear; Z33.1 Pregnant state, incidental
CPT/HCPCS: 99282

== ENCOUNTER 2020-09-03 20:33 | Emergency (ER) | payer MEDICAID ==
[~2020-09-03] VITALS: Ht 172.7 cm; Wt 103.4 kg
[2020-09-03 20:37] VITALS: BP 122/73
[2020-09-03 20:47] VITALS: BP 122/73
--- NOTE | 2020-09-03 20:53 | NUR ---
ED Nurse Note: pt has c/o possible uti or yeast infection 4 months , no pain Aox4, ambulatory, no health history urine collected and sent to lab
--- NOTE | 2020-09-03 21:04 | NUR ---
ED Nurse Note: Yao DAVIES with plvic exam, pt tolerated well, no bleding or complaints, lab specimen sent and pt given necessities for cleaning.
[2020-09-03 21:10] LABS: BILIRUBIN, URINE NEGATIVE (NEGATIVE); GLUCOSE, URINE (UA) NEGATIVE (NEGATIVE); KETONES,URINE NEGATIVE (NEGATIVE); LEUKOCYTE ESTERASE ,URINE 1+ (NEGATIVE); NITRITE,URINE NEGATIVE (NEGATIVE); PH,URINE 6 (4.5-8.0); PROTEIN,URINE NEGATIVE (NEGATIVE); UROBILINOGEN,URINE NORMAL MG/DL (0.0-1.0)
[2020-09-03] MEDS ORDERED: Fluconazole 100mg tab ORAL ONE (21:15)
[2020-09-03 21:17] LABS: APPEARANCE,URINE SLIGHTLY CLOUDY; COLOR,URINE YELLOW
--- NOTE | 2020-09-04 17:40 | Emergency Room Report ---
History of Present Illness General Chief Complaint: Female Urogenital Problems Source: Patient Present Illness HPI Patient is a 30-year-old female presents for increased vaginal itching. Reports having some burning sensation to her vulvar area. She states she is currently . Denies any fever. Had antibiotic use approximately 3 weeks ago. Reports having some mild urinary symptoms. Denies any vomiting or diarrhea. Denies any abdominal pain. No recent fevers. Allergies: Coded Allergies: No Known Allergies (Unverified , 12/23/17) COVID-19 Screening Contact w/high risk pt: No Experienced COVID-19 symptoms?: No COVID-19 Testing performed CORPORATE TRAVEL CONSULTANT: No Patient History Past Medical History: see triage record Last Menstrual Period: 04/30/21 Now: Yes : 3 Para: 2 Reviewed Nursing Documentation: PMH: Agreed; PSxH: Agreed Nursing Documentation-PMH Hx Cardiac Problems: No Hx Hypertension: No Hx Pacemaker: No Hx Asthma: No Hx COPD: No Hx Diabetes: No Hx Cancer: No Hx Gastrointestinal Problems: No Hx Dialysis: No History Of Psychiatric Problem: No Hx Neurological Problems: No Hx Cerebrovascular Accident: No Hx Seizures: No Review of Systems All Other Systems: negative except mentioned in HPI Physical Exam Vital Signs Date Time Temp Pulse Resp B/P (MAP) Pulse Ox O2 Delivery O2 Flow Rate FiO2 09/03/20 20:37 98.2 76 20 122/73 (89) 100 Room Air Sp02 EP Interpretation: reviewed, normal General Appearance: normal inspection, well appearing, no apparent distress, alert, GCS 15 Head: atraumatic ENT: normal ENT inspection, hearing grossly normal, normal voice Neck: normal inspection, full range of motion, supple, no bony tend Respiratory: normal inspection, lungs clear, normal breath sounds, no respiratory distress, no retraction, no wheezing Cardiovascular #1: regular rate, rhythm, no edema Gastrointestinal: normal inspection, normal bowel sounds, non tender, soft, no guarding, no hernia Genitourinary: other Musculoskeletal: normal inspection, back normal, normal range of motion Neurologic: alert, motor strength/tone normal, blue line hanger III-XII nml as tested, oriented x3, responsive, speech normal, normal inspection Psychiatric: normal inspection, judgement/insight normal, mood/affect normal Medical Decision Making Diagnostic Impression: Primary Impression: Vaginitis ER Course Patient presents for vaginal discomfort. Differential diagnosis include was not limited to vaginitis, yeast infection, among others. Patient has a benign exam and does not appear to require any imaging or laboratory testing at this time. Patient appears to have some slight yeast infection at this time. Patient was given Diflucan. She was advised to follow-up with STAFFING DIRECTOR for recheck. She advised to return if worse. This medical record is generated with [employer] utility worker production software. There may be some utility worker production discrepancies related to use of this software this medical record is generated with [employer] utility worker production software. Labs Test 09/03/20 20:46 Urine Color Yellow Urine Appearance Slightly cloudy Urine pH 6 (4.5-8.0) Urine Specific [place] 1.020 (1.005-1.035) Urine Protein Negative (NEGATIVE) Urine Glucose (UA) Negative (NEGATIVE) Urine Ketones Negative (NEGATIVE) Urine Blood 1+ (NEGATIVE) Urine Nitrite Negative (NEGATIVE) Urine Bilirubin Negative (NEGATIVE) Urine Urobilinogen Normal MG/DL (0.0-1.0) Urine Leukocyte Esterase 1+ (NEGATIVE) Urine RBC 2-4 /HPF (0 - 2) Urine WBC 5-10 /HPF (0 - 2) Urine Squamous Epithelial Cells Many /LPF (NONE/OCC) Urine Bacteria Few /HPF (NONE) Last Vital Signs Date Time Temp Pulse Resp B/P (MAP) Pulse Ox O2 Delivery O2 Flow Rate FiO2 09/03/20 20:47 98.2 20 122/73 100 Room Air 09/03/20 20:37 76 Status: improved Disposition: HOME, SELF-CARE Condition: Stable Referrals: NON PHYSICIAN (PCP) Patient Instructions: Vaginal Yeast Infection, Adult Additional Instructions: Follow up with your tobacco blender for recheck. Return if any concerns. Dada Luevano MD Sep 04, 2020 17:40
== END 2020-09-03 21:19 | disposition home or self-care (01) ==
LOC: EMR 20:49
DX: N76.0 Acute vaginitis (principal)
CPT/HCPCS: 81003; 87210; Z7502; 99283

== ENCOUNTER 2020-09-10 11:37 | Emergency (ER) | payer MEDICAID ==
[~2020-09-10] VITALS: Ht 172.7 cm; Wt 98.4 kg
--- NOTE | 2020-09-10 11:55 | Emergency Room Report ---
History of Present Illness General Chief Complaint: Female Urogenital Problems Source: Patient Present Illness HPI Patient presents with 2 days of dysuria. She was seen here a week ago last Friday and told that she had a yeast infection. She was given 1 brown pill and told that it would take care of it. A pelvic exam was done at that time. She denies any hematuria or fevers. She rates the pain 4/10 at this time. She took Tylenol yesterday which helped somewhat. On September 03 the urinalysis showed 5-10 white blood cells. Wet mount was negative at that time. She was treated with Diflucan 100 mg. She reports that the discharge is white and cheesy. Patient is 16 weeks 3days. She denies any vaginal bleeding. She says she is with twins at this time. Patient tested negative for Covid 2-1/2 weeks ago. She denies any upper respiratory symptoms. Patient has occasional constipation and she feels this might be related to vites and not taking enough water. 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 Last Menstrual Period: 4 months Now: Yes : 4 Para: 2 Reviewed Nursing Documentation: PMH: Agreed; PSxH: Agreed Nursing Documentation-PM Past Medical History: No Stated History Hx Cardiac Problems: No Hx Hypertension: No Hx Pacemaker: No Hx Asthma: No Hx COPD: No Hx Diabetes: No Hx Cancer: No Hx Gastrointestinal Problems: No Hx Dialysis: No Hx Neurological Problems: No Hx Cerebrovascular Accident: No Hx Seizures: No Review of Systems All Other Systems: negative except mentioned in HPI Physical Exam Vital Signs Date Time Temp Pulse Resp B/P (MAP) Pulse Ox O2 Delivery O2 Flow Rate FiO2 09/10/20 11:45 98.8 88 20 113/62 (79) 97 Room Air Sp02 EP Interpretation: reviewed, normal General Appearance: well appearing, no apparent distress, GCS 15 Head: normocephalic Eyes: bilateral eye normal inspection, bilateral eye PERRL, bilateral eye EOMI ENT: other - Mask Neck: normal inspection, full range of motion Respiratory: lungs clear, normal breath sounds Cardiovascular #1: regular rate, rhythm Gastrointestinal: normal inspection, overweight Genitourinary: no CVA tenderness, deferred - Patient pelvic exam without increased symptomatology at this time Musculoskeletal: gait/station normal Neurologic: alert, grossly normal Psychiatric: mood/affect normal Skin: normal color, no rash Medical Decision Making Diagnostic Impression: Primary Impression: Dysuria in in second trimester Additional Impression: Vaginitis Qualified Codes: N76.1 - Subacute and chronic vaginitis ER Course Patient is 4 months with twins presents with dysuria after being told she had a yeast infection that was supposedly treated last week. Differential includes she UTI, vaginitis amongst others. Urinalysis is indicated. Most likely she did not have adequate treatment for yeast and this is considered. Tylenol is administered. Laboratory Tests Test 09/10/20 11:55 Urine Color Pale yellow Urine Appearance Cloudy Urine pH 7 (4.5-8.0) Urine Specific [place] 1.015 (1.005-1.035) Urine Protein Negative (NEGATIVE) Urine Glucose (UA) Negative (NEGATIVE) Urine Ketones Negative (NEGATIVE) Urine Blood Negative (NEGATIVE) Urine Nitrite Negative (NEGATIVE) Urine Bilirubin Negative (NEGATIVE) Urine Urobilinogen Normal MG/DL (0.0-1.0) Urine Leukocyte Esterase Negative (NEGATIVE) Last Vital Signs Date Time Temp Pulse Resp B/P (MAP) Pulse Ox O2 Delivery O2 Flow Rate FiO2 09/10/20 11:57 98.8 20 113/62 97 Room Air 09/10/20 11:45 88 Status: improved Disposition: HOME, SELF-CARE Condition: Improved Scripts Clotrimazole (GYNE-LOTRIMIN*) 45 Gm Cream.appl 1 APPLIC VG QHS, #45 GM 0 Refills Prov: Adam Bearden MD 09/10/20 Adam Bearden MD Sep 10, 2020 11:55
[2020-09-10 11:57] VITALS: BP 113/62
--- NOTE | 2020-09-10 12:02 | NUR ---
ED Nurse Note: urine sent as ordered
[2020-09-10] MEDS ORDERED: Acetaminophen 500mg (ES) tab ORAL ONE (12:15)
[2020-09-10 12:18] LABS: APPEARANCE,URINE CLOUDY; BILIRUBIN, URINE NEGATIVE (NEGATIVE); COLOR,URINE PALE YELLOW; GLUCOSE, URINE (UA) NEGATIVE (NEGATIVE); KETONES,URINE NEGATIVE (NEGATIVE); LEUKOCYTE ESTERASE ,URINE NEGATIVE (NEGATIVE); NITRITE,URINE NEGATIVE (NEGATIVE); PH,URINE 7 (4.5-8.0); PROTEIN,URINE NEGATIVE (NEGATIVE); UROBILINOGEN,URINE NORMAL MG/DL (0.0-1.0)
[2020-09-10] MEDS ORDERED: GYNE-LOTRIMIN45 GM VG (12:51)
== END 2020-09-10 13:04 | disposition home or self-care (01) ==
LOC: EMR 12:34
DX: O23.592 Infection of other part of genital tract in pregnancy, second trimester (principal); N76.1 Subacute and chronic vaginitis; Z3A.16 16 weeks gestation of pregnancy
CPT/HCPCS: 81003; Z7502; 99283

== ENCOUNTER 2020-09-18 18:38 | Emergency (ER) | payer MEDICAID ==
[~2020-09-18] VITALS: Ht 170.2 cm; Wt 98.9 kg
[~2020-09-18 18:38] MED LIST changes: +GYNE-LOTRIMIN45 GM VG
[2020-09-18 19:00] VITALS: BP 132/81
--- NOTE | 2020-09-18 19:29 | NUR ---
ED Nurse Note: report given to CELESTINO serrano. patient is awake and alert having venous duplex done
--- NOTE | 2020-09-18 19:34 | Diagnostic Imaging Report ---
EXAM: XR Left Foot Complete, 3 or More Views CLINICAL HISTORY: TRAUMA TECHNIQUE: Frontal, lateral and oblique views of the left foot. COMPARISON: No relevant prior studies available. FINDINGS: Bones/joints: No acute fracture. Soft tissues: No radiodense foreign body. Soft tissue swelling. IMPRESSION: No acute fracture.
--- NOTE | 2020-09-18 19:37 | NUR ---
US at bedside performing scan on patient lower extremity.
--- NOTE | 2020-09-18 19:47 | Emergency Room Report ---
History of Present Illness General Chief Complaint: Lower Extremity Injury Source: Patient Present Illness HPI 30-year-old female who is she 3 P2 and 18 weeks with twins here complaining of left heel pain that started today without any fall or injury. Minimal ecchymosis noted on left lateral foot. Patient has range of motion of toes per denies any tingling numbness. Denies any calf tenderness. Denies chest pain shortness of breath. Reports that has an appointment coming up with [facility] this week. Any abdominal pain, vaginal bleeding or spotting. Is in no distress. Has normal vital signs. Patient is neurovascularly intact. Allergies: Coded Allergies: No Known Allergies (Unverified , 12/23/17) COVID-19 Screening Contact w/high risk pt: No Experienced COVID-19 symptoms?: No COVID-19 Testing performed IN SERVICE EDUCATOR: No Patient History Past Medical History: see triage record Past Surgical History: none Pertinent Family History: none Last Menstrual Period: Now: Yes - 18 weeks Reviewed Nursing Documentation: PMH: Agreed; PSxH: Agreed Nursing Documentation-PMH Past Medical History: No History, Except For Hx Cardiac Problems: No Hx Hypertension: No Hx Pacemaker: No Hx Asthma: No Hx COPD: No Hx Diabetes: No Hx Cancer: No Hx Gastrointestinal Problems: No Hx Dialysis: No Hx Neurological Problems: No Hx Cerebrovascular Accident: No Hx Seizures: No Review of Systems All Other Systems: negative except mentioned in HPI Physical Exam Vital Signs Date Time Temp Pulse Resp B/P (MAP) Pulse Ox O2 Delivery O2 Flow Rate FiO2 09/18/20 18:45 98.1 76 18 110/66 (81) 99 Room Air Sp02 EP Interpretation: reviewed, normal General Appearance: no apparent distress, alert, GCS 15, non-toxic Head: normocephalic, atraumatic Eyes: bilateral eye normal inspection, bilateral eye PERRL ENT: no angioedema Neck: no bony tend Respiratory: no rhonchi, no respiratory distress, no accessory muscle use, no wheezing Cardiovascular #1: regular rate, rhythm, no edema, no murmur Cardiovascular #2: 2+ dorsalis pedis (R), 2+ dorsalis pedis (L) Gastrointestinal: soft Musculoskeletal: back normal, no calf tenderness, no lower extremity edema, non-tender, other - Minimal ecchymosis noted left lateral foot without any bony tenderness Neurologic: alert, motor strength/tone normal, oriented x3, sensory intact, responsive, speech normal Psychiatric: judgement/insight normal, memory normal, mood/affect normal, no suicidal/homicidal ideation Skin: no rash Lymphatic: no adenopathy Procedures Splinting Splinting : Consent: Verbal Location: Left foot Pre-Made Type: GM wrap Pre-Proc Neuro Vasc Exam: normal Post-Proc Neuro Vasc Exam: normal Patient Tolerated: Well Complications: None Medical Decision Making PA Attestation All my diagnosis and treatment plans were reviewed ad discussed with my supervising physician Dr. Luevano Diagnostic Impression: Primary Impression: Contusion of heel ER Course 30-year-old female who is she 3 P2 and 18 weeks with twins here complaining of left heel pain that started today without any fall or injury. Minimal ecchymosis noted on left lateral foot. Patient has range of motion of toes per denies any tingling numbness. Denies any calf tenderness. Denies chest pain shortness of breath. Reports that has an appointment coming up with [facility] this week. Any abdominal pain, vaginal bleeding or spotting. Is in no distress. Has normal vital signs. Patient is neurovascularly intact. Ddx considered but are not limited to: foot fracture, foot sprain, foot contusion, foot strain, DVT Vital signs: are WNL, pt. is afebrile H&PE are most consistent with: Contusion. ORDERS: foot Xray, venous duplex ultrasound left lower extremity, Tylenol, lidocaine cream ED INTERVENTIONS: Tylenol, lidocaine patch, Gm wrap DISCHARGE: At this time pt. is stable for d/c to home. Will provide printed patient care instructions, and any necessary prescriptions. Care plan and follow up instructions have been discussed with the patient prior to discharge. Take m edication as directed, follow-up with the specialist, worsening symptom return to the emergency room. Other X-Ray Diagnostic Results Other X-Ray Diagnostic Results : X-Ray ordered: Left foot # of Views/Limited Vs Complete: 3 View Indication: Pain EP Interpretation: Yes PA Xray: Interpretation reviewed, by supervising MD, and agrees with findings. Interpretation: no dislocation, no soft tissue swelling, no fractures Impression: No acute disease Electronically Signed by: Johnathan White PA-C CT/MRI/US Diagnostic Results CT/MRI/US Diagnostic Results : Imaging Test Ordered: Left lower extremity venous duplex ultrasound Impression No DVT noted Last Vital Signs Date Time Temp Pulse Resp B/P (MAP) Pulse Ox O2 Delivery O2 Flow Rate FiO2 09/18/20 19:00 97.1 87 19 132/81 93 Room Air Disposition: HOME, SELF-CARE Condition: Stable Scripts Lidocaine (Lidocaine) 15 Gm Cream..g. 2 GM TP TID, #15 GM Prov: Johnathan Vasques 09/18/20 Acetaminophen* (ACETAMINOPHEN 325MG TABLET*) 325 Mg Tablet 650 MG ORAL Q6H PRN for For Pain, #30 TAB Prov: Johnathan Vasques 09/18/20 Referrals: NON PHYSICIAN (PCP) Patient Instructions: Foot Contusion Additional Instructions: Take medication as directed, follow-up with primary care provider medical support specialist, ice and elevate the affected area, if worsening symptom return to the emergency room Johnathan Vasques Sep 18, 2020 19:47
[2020-09-18] MEDS ORDERED: ACETAMINOPHEN325 M1 ORAL (19:49)
[2020-09-18] MEDS ORDERED: LIDOCAINE15 GM TP (19:49)
--- NOTE | 2020-09-18 20:19 | Diagnostic Imaging Report ---
EXAM: US Duplex Left Lower Extremity Veins CLINICAL HISTORY: DVT TECHNIQUE: Real-time duplex ultrasound scan of the left lower extremity veins integrating B-mode two-dimensional vascular structure, Doppler spectral analysis, color flow Doppler imaging and compression. COMPARISON: No relevant prior studies available. FINDINGS: Deep veins: Unremarkable. No DVT in the visualized common femoral, femoral, proximal deep femoral or popliteal veins. The veins demonstrate normal color flow, are normally compressible, with normal phasic flow and/or augmentation response. Superficial veins: No thrombus in the visualized segments of the greater saphenous vein. IMPRESSION: No DVT demonstrated.
== END 2020-09-18 19:57 | disposition home or self-care (01) ==
LOC: EMR 18:59
DX: O26.92 Pregnancy related conditions, unspecified, second trimester (principal); S90.32XA Contusion of left foot, initial encounter; X58.XXXA Exposure to other specified factors, initial encounter; Y92.9 Unspecified place or not applicable; Z3A.18 18 weeks gestation of pregnancy
CPT/HCPCS: 73630; 93971; Z7502; 99284